=== PATIENT | male | born 1965 | race Caucasian/White ===

== ENCOUNTER 2017-12-09 21:49 | Emergency (ER) | payer OTHER ==
[~2017-12-09] VITALS: Ht 185.4 cm; Wt 81.6 kg
--- NOTE | 2017-12-09 22:02 | NUR ---
BIB SELF AA/O X4 COMPLAINING OF LEFT SHOULDER/ ELBO/ BACK PAIN S/P FALL 2 DAYS AGO. NAD. VSS. STABLE CONDITION. MD AT BEDSIDE FOR EVAL. AWAITING ORDERS.
[2017-12-10] MEDS ORDERED: IBUPROFEN 600 MG TABLET PO ONE ×2 (00:08)
--- NOTE | 2017-12-10 00:15 | NUR ---
PT BROUGHT TO XRAY
[2017-12-10 01:03] VITALS: BP 118/76
--- NOTE | 2017-12-10 01:05 | NUR ---
Patient discharged to home in stable condition. Written and verbal after care instructions given. Patient verbalizes understanding of instruction. PT AMBULATORY UPON DC WITH STEADY GAIT. INSTRUCTED NOT OPERATE OR DRIVE HEAVY MACHINERY
== END 2017-12-10 01:04 | disposition home or self-care (01) ==
LOC: ER 21:51
DX: S40.022A Contusion of left upper arm, initial encounter (principal); M54.12 Radiculopathy, cervical region; M75.52 Bursitis of left shoulder; W18.39XA Other fall on same level, initial encounter; Y93.89 Activity, other specified; Y92.89 Other specified places as the place of occurrence of the external cause; Y99.8 Other external cause status
CPT/HCPCS: 72040; 73060; 99284; A4606; Z7610